=== PATIENT | female | born 1975 | race Hispanic/Latino ===

== ENCOUNTER 2018-10-25 16:02 | Outpatient (CLI) | payer SELFPAY ==
--- NOTE | 2018-10-25 16:20 | RAD ---
Exam:Left tibia fibula 2 views HISTORY: Pain. Longmore fell on her leg. COMPARISON: None FINDINGS: No fracture. No cortical irregularity. No periosteal reaction. IMPRESSION: No fracture.
== END 2018-10-25 16:03 | disposition home or self-care (01) ==
LOC: BICRAD 16:02
PROVIDERS: ATTEND Family Medicine
DX: M79.605 Pain in left leg (principal)